=== PATIENT | male | born 1970 | race Caucasian/White ===

== ENCOUNTER 2021-09-21 12:33 | Emergency (ER) | payer OTHER, SELFPAY ==
--- NOTE | 2021-09-21 12:54 | HMH.EDUTC ---
[facility] [place] Clinical Impression: Viral syndrome, Exposure to COVID-19 virus Disposition: Home, Self-Care Condition on Discharge: Good Instructions: DI for COVID-19 (Suspected or Confirmed ), Preventing the Spread of Coronavirus Discharge Instructions Additional Instructions: Drink plenty of fluids. Take tylenol for pain or fever. Return if you begin to have difficulty breathing. Follow up with your regular doctor. GO TO THE ER FOR ANY WORSENING SYMPTOMS Quarantine until you know the results of your covid-19 test. Notify your school or workplace of your results and follow their instructions regarding return to work/school. Referrals: Provider,Referral, [Primary Care Provider] - Time of Disposition: 12:59 Medical Decision Making - Medical Records Medical records reviewed: No: I reviewed the patient's medical records. - Marco Inquiry Pt receiving controlled substance: No Vital Signs: 09/21/21 13:01 09/21/21 13:05 Temperature 98.7 F 98.7 F Temperature Source Oral Pulse Rate 77 Pulse Rate [Left] 77 Respiratory Rate 16 16 Blood Pressure 138/97 H Blood Pressure [Right Arm] 138/97 H Blood Pressure Mean [Right Arm] 110 02 Sat by Pulse Oximetry 96 [facility] [place] HPI - General Stated complaint: congestion, JOSEPH,wants covid test Time Seen by Provider: 09/21/21 12:54 - History of Present Illness Provider Complaint: He states that for the past 1 day he has felt bad and had sinus congestion. He came in to be tested for covid-19 because he works with the public. He denies any shortness of breath. - Related Data Home Medications Medication Instructions Recorded Confirmed No Known Home Medications 12/01/19 01/28/20 Allergies Allergy/AdvReac Type Severity Reaction Status Date / Time No Known Allergies Allergy Verified 01/28/20 13:29 [facility] History - Hepatitis A Screen Attestation statement:: This patient has been screened for Hepatitis A risk factors. I have reviewed the patient's past medical history: Yes ROS Obtained: Yes All systems reviewed & no additional complaints - Constitutional Constitutional: Reports system reviewed and no additional complaints, except as docu - Eyes Eyes: Reports system reviewed and no additional complaints, except as docu - ENT Ears, Nose, Mouth, and Throat: Reports system reviewed and no additional complaints, except as docu - Cardiovascular Cardiovascular: Reports system reviewed and no additional complaints, except as docu Physical Exam - General General appearance: alert, in no apparent distress - Head Head exam: atraumatic, normocephalic, normal inspection - Eye Eye exam: Present: normal appearance, PERRL, EOMI - ENT ENT exam: Present: normal exam, normal oropharynx, mucous membranes moist, TM's normal bilaterally, normal external ear exam - Neck Neck exam: Present: normal inspection, full ROM, trachea midline. Absent: meningismus, lymphadenopathy - Chest Chest inspection: Present: normal inspection, symmetric chest wall rise. Absent: tenderness - Respiratory Respiratory exam: Present: normal lung sounds bilaterally. Absent: respiratory distress - Cardiovascular Cardiovascular exam: Present: regular rate, normal rhythm. Absent: JVD - Abdominal Exam Abdominal exam: Present: soft, normal bowel sounds. Absent: distention, tenderness, guarding - Extremities Exam Extremities exam: Present: normal inspection, full ROM, normal capillary refill. Absent: calf tenderness - Back Exam Back exam: Present: normal inspection. Absent: tenderness - Neurological Exam Neurological exam: Present: alert, oriented X3 - Psychiatric Psychiatric exam: Present: normal affect, normal mood - Skin Skin exam: Present: warm, dry, intact, normal color - Lymphatic Lymphatic Findings: no adenopathy
[2021-09-21 13:01] VITALS: BP 138/97; PULSE 77; RESP 16; TEMP 37.1; O2SAT 96; BMI 19.0
[2021-09-21 13:05] VITALS: BP 138/97; PULSE 77; RESP 16; TEMP 37.1
== END 2021-09-21 13:06 | disposition home or self-care (01) ==
PROVIDERS: Emergency Provider Nurse Practitioner Family
DX: U07.1 COVID-19 (principal)
CPT/HCPCS: 99212; C9803; G0463; U0003; U0005

== ENCOUNTER 2023-12-15 04:51 | Emergency (ER) | payer OTHER, SELFPAY ==
[2023-12-15 04:52] VITALS: BP 182/107; PULSE 94; RESP 18; TEMP 36.8; O2SAT 98; BMI 33.9
--- NOTE | 2023-12-15 05:01 | HMH.EDGENADL ---
Discharge Plan Disposition Patient Disposition: Home, Self-Care Condition: Good Prescriptions Prescriptions: No Action No Known Home Medications Referrals Follow up/Referrals: Provider,Referral, [Primary Care Provider] - See instructions Activity Restrictions/Add. Instructions Additional Instructions/Restrictions: You were evaluated in the ER and are appropriate for discharge at this time. Continue home medications as prescribed. Drink plenty of water. Take Tylenol, ibuprofen if needed for pain or fevers. Do not exceed the recommended dose on the bottle, drink water and eat a snack each time you take these medications. Make an appointment with your primary care doctor for reevaluation and 2 to 3 days. Return to the ER with new, worsening, or otherwise concerning symptoms. Clinical Impressions Clinical Impression: Pharyngitis Print Language Print Language: Azerbaijani Discharge ED Provider: Zachary Wilder General Adult HPI General Chief complaint: Upper Respiratory Infection Stated complaint: sore throat, unable to swalllow, fever, chills Time Seen by Provider: 12/15/23 04:58 History of Present Illness HPI narrative: 53-year-old male initially presented to the ER reporting he was unable to swallow but on further discussion patient is able to swallow, has sore throat, subjective fever, chills. Patient reports he took NyQuil about 1 hour prior to arrival. He also states he took ibuprofen at work yesterday. He states he has not had improvement of symptoms so he came to the ER for evaluation. He states he feels mucus behind his left ear but otherwise does not have other associated symptoms. He has no headache, dizziness, numbness, tingling, weakness, chest pain, difficulty breathing, cough, congestion, nausea, vomiting, diarrhea, constipation, abdominal pain, dysuria, hematuria, or other associated symptoms. Patient reports his throat is extremely sore and that is his primary concern. He reports having COVID twice and this feeling different than previous. Related Data Home Medications ?Medication ?Instructions ?Recorded ?Confirmed No Known Home Medications 12/01/19 01/28/20 Allergies Allergy/AdvReac Type Severity Reaction Status Date / Time No Known Allergies Allergy Verified 01/28/20 13:29 [facility] Disclaimer: The information contained in this section may have been updated after the patient was seen, as this information can be updated by other users. Social History Smoking Status: Never smoker alcohol intake: never current occupational status: other Travel in the last 8 weeks: None ROS Obtained: Yes Systems reviewed as appropriate & no additional complaints except as documented ROS per HPI Physical Exam General General appearance: alert and in no apparent distress Head Head exam: atraumatic and normocephalic Eye Eye exam: Present PERRL and EOMI ENT ENT exam: Present mucous membranes moist, TM's normal bilaterally and other (Erythematous posterior oropharynx without tonsillomegaly, no exudates, airway patent, no stridor, tolerating secretions) Neck Neck exam: Present normal inspection and full ROM; Absent tenderness Chest Chest inspection: Present symmetric chest wall rise; Absent tenderness Respiratory Respiratory exam: Present normal lung sounds bilaterally; Absent respiratory distress, wheezes or stridor Cardiovascular Cardiovascular exam: Present regular rate and normal rhythm Abdominal Exam Abdominal exam: Present soft; Absent distention or tenderness Extremities Exam Extremities exam: Present full ROM and edema Neurological Exam Neurological exam: Present alert, oriented X3 and normal gait; Absent motor sensory deficit Psychiatric Psychiatric exam: Present normal affect and normal mood Skin Skin exam: Present warm and dry Medical Decision Making Medical Records Medical records reviewed: Yes I reviewed the patient's medical records. Screening: Per USPSTF and CDC recommendations, given the prevalence of disease in our region, it is our hospital?s policy to screen for HIV and viral Hepatitis for all patients aged 18 and over and those with ongoing risk factors. MR Comment: Previous visits in our system have been for respiratory symptoms, exposure to COVID, UTC evaluation Marco Inquiry Pt receiving controlled substance: No Vital Signs: 12/15/23 04:52 12/15/23 05:15 Temperature 98.2 F Temperature Source Oral Pulse Rate 83 Pulse Rate [Left Radial] 94 H Respiratory Rate 18 Blood Pressure 158/93 H Blood Pressure [Right Arm] 182/107 H Blood Pressure Mean [Right Arm] 132 Blood Pressure Source [Right Arm] Automatic Cuff Blood Pressure Position [Right Arm] Sitting 02 Sat by Pulse Oximetry 98 93 L Oxygen Delivery Method Room Air Lab Data Lab Results 12/15/23 04:56: Chlamy pneumoniae PCR Not detected, Adenovirus (PCR) Not detected, B. pertussis DNA (PCR) Not detected, Coronavirus OC43 (PCR) Not detected, Coronavirus HKU1 (PCR) Not detected, Coronavirus 229E (PCR) Not detected, SARS-CoV-2 (PCR) Not detected, Coronavirus NL63 (PCR) Not detected, Human Metapneumovir PCR Not detected, Influenza A (H1) PCR Not detected, Influ A (H1N1/09) PCR Not detected, Influenza A (H3) PCR Not detected, Influenza Type A (PCR) Not detected, Influenza Type B (PCR) Not detected, M. pneumoniae (PCR) Not detected, Parainfluenza 1 (PCR) Not detected, Parainfluenza 2 (PCR) Not detected, Parainfluenza 3 (PCR) Not detected, Parainfluenza 4 (PCR) Not detected, RSV (PCR) Not detected, Entero/Rhino (PCR) Not detected, Group A Strep Rapid Negative Orders (Tests/Meds): ED MEDICATIONS Discontinued Medications Generic Name Dose Route Start Last Admin Trade Name Freq PRN Reason Stop Dose Admin Ketorolac Tromethamine 30 mg 12/15/23 04:58 12/15/23 05:27 Ketorolac 30mg/Ml Vial IM 12/15/23 04:59 30 mg ONCE ONE Administration ORDERS Category Date Time Status Full Resp Panel w/COVID ([facility]) Routine Lab 12/15/23 04:56 Completed Strep Scrn Group A (Rapid) Stat Lab 12/15/23 04:56 Completed Strep Screen Confirmation Stat Micro 12/15/23 04:56 Received Medical Decision Narrative: In summary, this 53-year-old male with history of hypertension presents to the ER for complaints of sore throat, subjective fevers, chills. On initial evaluation patient is hypertensive but overall hemodynamically stable, afebrile, cardiopulmonary exam is benign, patient has no lymphadenopathy, posterior oropharynx erythematous without tonsillomegaly or exudate, tympanic membranes normal. Differential diagnosis includes but is not limited to viral syndrome, I considered strep throat but much lower suspicion for this since patient has no exudate or fever and no lymphadenopathy. Based on these concerns, I ordered respiratory panel, strep. Patient received Toradol for symptom management. I reviewed labs which demonstrate patient is negative for strep as well as for all analytes on the respiratory panel. On reassessment he is sleeping comfortably. When woken up, he states his symptoms are tolerable. He is appropriate for discharge at this time. Patient was given instructions on symptomatic management, follow up instructions, and return precautions for the emergency department. Patient indicated understanding and was discharged in stable condition. Critical Care Critical Care Time Critical Care Time: No
[2023-12-15 05:04] LABS: Adenovirus,PCR Not Detected (NotDetected); Bordetella Pertussis Not Detected (NotDetected); Chlamydophila Pneumoniae, PCR Not Detected (NotDetected); Coronavirus 19, PCR Not Detected (NotDetected); Coronavirus 229E Not Detected (NotDetected); Coronavirus NL63 Not Detected (NotDetected); Coronavirus OC43 Not Detected (NotDetected); Coronovirus HKU1,PCR Not Detected (NotDetected); Human Metapneumovirus Not Detected (NotDetected); Influenza A, PCR Not Detected (NotDetected); Influenza AH1, 2009 Not Detected (NotDetected); Influenza AH1, PCR Not Detected (NotDetected); Influenza AH3,PCR Not Detected (NotDetected); Influenza B, PCR Not Detected (NotDetected); Mycoplasma Pneumoniae, PCR Not Detected (NotDetected); Parainfluenza 1, PCR Not Detected (NotDetected); Parainfluenza 2, PCR Not Detected (NotDetected); Parainfluenza 3, PCR Not Detected (NotDetected); Parainfluenza 4, PCR Not Detected (NotDetected); Respiratory Syncytial Virus Not Detected (NotDetected); Rhinovirus/Enterovirus Not Detected (NotDetected)
[2023-12-15 05:12] LABS: Strep Scrn Group A (Rapid) Negative (Negative)
[2023-12-15 05:15] VITALS: BP 158/93; PULSE 83; O2SAT 93
[2023-12-15] MEDS: KETOROLAC 30MG/ML VIAL 30 MG IM (05:27)
[2023-12-15 06:23] VITALS: BP 136/85; PULSE 78; RESP 18; TEMP 36.6; O2SAT 98
== END 2023-12-15 06:25 | disposition home or self-care (01) ==
PROVIDERS: Emergency Provider Emergency Medicine
DX: J02.9 Acute pharyngitis, unspecified (principal); R50.9 Fever, unspecified; R13.10 Dysphagia, unspecified
CPT/HCPCS: 87265; 87430; 87486; 87581; 87632; 87635; 96372; 99283; J1885

== ENCOUNTER 2023-12-17 19:13 | Emergency (ER) | payer OTHER, SELFPAY ==
--- NOTE | 2023-12-17 21:10 | ED_ITS ---
<Statement entered by Susan Marin DO - 12/17/23 23:41> I was consulted by the HEIDI, and we discussed the complexity of the problems being addressed. I approved the treatment and management plan for this patient's care in the emergency department, thus performing a substantive portion of the medical decision making. Susan Marin DO Discharge Plan Disposition Patient Disposition: Home, Self-Care Condition: Good Prescriptions Prescriptions: No Action No Known Home Medications Referrals Follow up/Referrals: Provider,Referral, MD [Primary Care Provider] - See instructions Activity Restrictions/Add. Instructions Additional Instructions/Restrictions: Please call the eye doctor in the morning in town and the name of the place is my eye doctor . Follow-up with any worsening signs or symptoms as needed. Continue utilizing the erythromycin ointment I provided you in the ER twice a day and HI. Clinical Impressions Clinical Impression: Acute purulent conjunctivitis, bilateral Instructions Patient Instructions: DI for Conjunctivitis Print Language Print Language: [place]araguan Discharge ED Provider: Susan Marin General Adult HPI General Stated complaint: both eyes burning with discharge Time Seen by Provider: 12/17/23 21:10 History of Present Illness HPI narrative: Patient presents for evaluation of bilateral conjunctivitis. Patient was diagnosed with an upper respiratory tract infection this weekend that was presumably viral. However patient began having discharge yesterday but no pain or burning today he has had increasing drainage in his bilateral eyes along with pain and reports no actual vision loss but difficulty seeing due to the pain. He denies any fever chills hemoptysis hematochezia melena nasal congestion currently. Related Data Home Medications ?Medication ?Instructions ?Recorded ?Confirmed No Known Home Medications 12/01/19 01/28/20 Allergies Allergy/AdvReac Type Severity Reaction Status Date / Time No Known Allergies Allergy Verified 01/28/20 13:29 [facility] Disclaimer: The information contained in this section may have been updated after the patient was seen, as this information can be updated by other users. Social History (Updated 12/15/23 @ 06:23 by Zachary Wilder MD) Smoking Status: Never smoker alcohol intake: never current occupational status: other Travel in the last 8 weeks: None ROS Obtained: Yes Systems reviewed as appropriate & no additional complaints except as documented Physical Exam General General appearance: alert Respiratory Respiratory exam: Present normal lung sounds bilaterally Cardiovascular Cardiovascular exam: Present regular rate Neurological Exam Neurological exam: Present alert and oriented X3 Medical Decision Making Medical Records Medical records reviewed: Yes I reviewed the patient's medical records. Screening: Per USPSTF and CDC recommendations, given the prevalence of disease in our region, it is our hospital?s policy to screen for HIV and viral Hepatitis for all patients aged 18 and over and those with ongoing risk factors. Marco Inquiry Pt receiving controlled substance: No Medical Decision Narrative: In summary patient is a 53-year-old male who presents to the emergency department for evaluation of bilateral conjunctivitis. Patient is h emodynamically stable upon arrival, afebrile. Physical exam is remarkable for bilateral conjunctival injection along with greenish drainage. Patient has no pain with extraocular movements. There is no periorbital cellulitis. Patient actually has no vision changes. Differential diagnosis includes viral versus bacterial conjunctivitis. Initial workup will be conducted with exam under topical anesthesia and fluorescein stain.. There is no uptake in either cornea or pooling of the fluorescein. He definitely has purulence in both eyes as well. Given this patient given erythromycin ointment here and advised follow-up with optometry in the morning. Patient given strict return precautions. Critical Care Critical Care Time Critical Care Time: No
[2023-12-17 21:40] VITALS: BP 130/82; PULSE 85; RESP 20; TEMP 36.6; O2SAT 98; BMI 31.2
[2023-12-17 22:32] VITALS: BP 126/80; PULSE 78; RESP 18; TEMP 36.7; O2SAT 98
== END 2023-12-17 22:33 | disposition home or self-care (01) ==
PROVIDERS: Emergency Provider Emergency Medicine
DX: H10.023 Other mucopurulent conjunctivitis, bilateral (principal); H57.13 Ocular pain, bilateral; H53.8 Other visual disturbances
CPT/HCPCS: 99283